=== PATIENT | female | born 1980 | race Two or more races ===

== ENCOUNTER → 2016-09-16 | Outpatient (CLI) | payer BC ==
[2016-09-16 09:43] LABS: Basophils # (auto) 0.1 uL; Eosinophils # (auto) 0.3 uL; Eosinophils % (auto) 6.7 % (0.0-7.0); Hematocrit 39.6 % (36.0-46.0); Hemoglobin 12.8 g/dL (12.2-16.2); Lymphocytes # (auto) 1.5 uL; Lymphocytes % (auto) 30.9 % (10.0-50.0); Mean Corpuscular Hemoglobin 28.9 pg (28.0-32.0); Mean Corpuscular Hgb Conc. 32.4 g/dL (32.0-36.0); Mean Corpuscular Volume 89.1 fL (80.0-100.0); Mean Platelet Volume 7.8 fL (7.4-10.4); Monocytes # (auto) 0.3 uL; Monocytes % (auto) 6.8 % (0.0-12.0); Neutrophils # (auto) 2.7 uL; Neutrophils % (auto) 54.6 % (37.0-80.0); Platelet Count (auto) 426 10^3/uL (140-450); Red Cell Distribution Width 13.8 % (11.6-16.0); White Blood Cell 4.9 10^3/uL (4.4-10.8)
[2016-09-16 09:46] LABS: Albumin 3.8 g/dL (3.4-5.0); BUN/Creatinine Ratio 23.4; Bilirubin, Total 0.5 mg/dL (0.2-1.0); Calcium 8.6 mg/dL (8.5-10.1); Potassium 4.1 mmol/L (3.5-5.1); Total Protein 7.6 g/dL (6.4-8.2)
== END | disposition home or self-care (01) ==
LOC: LAB 07:29
DX: M06.9 Rheumatoid arthritis, unspecified (principal); M25.50 Pain in unspecified joint; D64.9 Anemia, unspecified; Z79.899 Other long term (current) drug therapy
CPT/HCPCS: 36415; 80053; 85025; 85652; 86141

== ENCOUNTER → 2016-11-08 | Outpatient (CLI) | payer BC ==
[2016-11-08 09:24] LABS: Basophils # (auto) 0.1 uL; Basophils % (auto) 0.9 % (0.0-2.0); Eosinophils # (auto) 0.3 uL; Eosinophils % (auto) 4.6 % (0.0-7.0); Hematocrit 41.6 % (36.0-46.0); Hemoglobin 14.1 g/dL (12.2-16.2); Lymphocytes # (auto) 1.7 uL; Lymphocytes % (auto) 27.7 % (10.0-50.0); Mean Corpuscular Hemoglobin 29.6 pg (28.0-32.0); Mean Corpuscular Hgb Conc. 33.8 g/dL (32.0-36.0); Mean Corpuscular Volume 87.5 fL (80.0-100.0); Mean Platelet Volume 7.6 fL (7.4-10.4); Monocytes # (auto) 0.4 uL; Monocytes % (auto) 6.9 % (0.0-12.0); Neutrophils # (auto) 3.7 uL; Neutrophils % (auto) 59.9 % (37.0-80.0); Platelet Count (auto) 453 10^3/uL (140-450); Red Cell Distribution Width 14.2 % (11.6-16.0); White Blood Cell 6.2 10^3/uL (4.4-10.8)
[2016-11-08 09:31] LABS: Urine Bilirubin Negative (Negative); Urine Blood TRACE /uL (Negative); Urine Color Yellow (Yellow); Urine Glucose Normal (Normal); Urine Ketone Negative (Negative); Urine Mucus FEW (None Seen); Urine Nitrite Negative (Negative); Urine RBC <1 /hpf (0 - 4); Urine Squamous Epithelial Cell FEW /hpf (<5); Urine Urobilinogen Normal (Negative); Urine pH 5.5 (5.0-8.0)
[2016-11-08 09:52] LABS: BUN/Creatinine Ratio 21.7; Bilirubin, Total 0.6 mg/dL (0.2-1.0); Calcium 8.7 mg/dL (8.5-10.1); Potassium 3.8 mmol/L (3.5-5.1); Total Protein 8.1 g/dL (6.4-8.2)
== END | disposition home or self-care (01) ==
LOC: LAB 07:15
DX: M06.9 Rheumatoid arthritis, unspecified (principal); E50.7 Other ocular manifestations of vitamin A deficiency; Z83.3 Family history of diabetes mellitus
CPT/HCPCS: 36415; 80053; 80061; 81001; 82306; 82607; 82746; 83036; 84443; 85025; 85652

== ENCOUNTER → 2016-12-28 | Outpatient (CLI) | payer BC ==
[2016-12-28 07:43] LABS: Basophils # (auto) 0.1 uL; Basophils % (auto) 1.1 % (0.0-2.0); Eosinophils # (auto) 0.3 uL; Eosinophils % (auto) 4.3 % (0.0-7.0); Hematocrit 40.4 % (36.0-46.0); Hemoglobin 13.7 g/dL (12.2-16.2); Lymphocytes # (auto) 1.7 uL; Lymphocytes % (auto) 28.6 % (10.0-50.0); Mean Corpuscular Hemoglobin 30.1 pg (28.0-32.0); Mean Corpuscular Hgb Conc. 33.9 g/dL (32.0-36.0); Mean Corpuscular Volume 88.9 fL (80.0-100.0); Mean Platelet Volume 7.1 fL (7.4-10.4); Monocytes # (auto) 0.4 uL; Monocytes % (auto) 6.6 % (0.0-12.0); Neutrophils # (auto) 3.5 uL; Neutrophils % (auto) 59.4 % (37.0-80.0); Platelet Count (auto) 439 10^3/uL (140-450); Red Cell Distribution Width 14.1 % (11.6-16.0); White Blood Cell 5.9 10^3/uL (4.4-10.8)
[2016-12-28 08:06] LABS: Albumin 3.9 g/dL (3.4-5.0); Bilirubin, Total 0.6 mg/dL (0.2-1.0); Calcium 8.6 mg/dL (8.5-10.1); Potassium 4.2 mmol/L (3.5-5.1); Total Protein 7.9 g/dL (6.4-8.2)
== END | disposition home or self-care (01) ==
LOC: LAB 07:20
DX: M06.9 Rheumatoid arthritis, unspecified (principal); M25.50 Pain in unspecified joint; D64.9 Anemia, unspecified; I10 Essential (primary) hypertension
CPT/HCPCS: 36415; 80053; 85025; 85652; 86141

== ENCOUNTER → 2017-03-15 | Outpatient (CLI) | payer BC ==
[2017-03-15 07:30] LABS: Basophils # (auto) 0.1 uL; Basophils % (auto) 1.4 % (0.0-2.0); CONDITION Y; Eosinophils # (auto) 0.4 uL; Eosinophils % (auto) 5.7 % (0.0-7.0); Hematocrit 40.5 % (36.0-46.0); Hemoglobin 13.9 g/dL (12.2-16.2); Lymphocytes % (auto) 32.1 % (10.0-50.0); Mean Corpuscular Hemoglobin 30.5 pg (28.0-32.0); Mean Corpuscular Hgb Conc. 34.2 g/dL (32.0-36.0); Mean Corpuscular Volume 89.2 fL (80.0-100.0); Mean Platelet Volume 7.2 fL (7.4-10.4); Monocytes # (auto) 0.4 uL; Monocytes % (auto) 6.5 % (0.0-12.0); Neutrophils # (auto) 3.4 uL; Neutrophils % (auto) 54.3 % (37.0-80.0); Platelet Count (auto) 421 10^3/uL (140-450); Red Cell Distribution Width 14.6 % (11.6-16.0); White Blood Cell 6.2 10^3/uL (4.4-10.8)
[2017-03-15 07:47] LABS: Albumin 3.9 g/dL (3.4-5.0); BUN/Creatinine Ratio 25.8; Bilirubin, Total 0.7 mg/dL (0.2-1.0); Calcium 8.9 mg/dL (8.5-10.1); Potassium 4.1 mmol/L (3.5-5.1); Total Protein 7.7 g/dL (6.4-8.2)
== END ==
LOC: LAB 07:05
DX: I10 Essential (primary) hypertension (principal); M06.9 Rheumatoid arthritis, unspecified; D64.9 Anemia, unspecified; M25.50 Pain in unspecified joint; Z79.899 Other long term (current) drug therapy
CPT/HCPCS: 36415; 80053; 85025; 85652; 86141

== ENCOUNTER → 2017-06-16 | Outpatient (CLI) | payer BC ==
[2017-06-16 09:02] LABS: Basophils # (auto) 0.1 uL; Basophils % (auto) 1.2 % (0.0-2.0); Eosinophils # (auto) 0.3 uL; Eosinophils % (auto) 4.9 % (0.0-7.0); Hemoglobin 13.5 g/dL (12.2-16.2); Lymphocytes # (auto) 1.9 uL; Lymphocytes % (auto) 34.9 % (10.0-50.0); Mean Corpuscular Hemoglobin 29.6 pg (28.0-32.0); Mean Corpuscular Hgb Conc. 33.7 g/dL (32.0-36.0); Monocytes # (auto) 0.4 uL; Monocytes % (auto) 7.3 % (0.0-12.0); Neutrophils # (auto) 2.8 uL; Neutrophils % (auto) 51.7 % (37.0-80.0); Platelet Count (auto) 436 10^3/uL (140-450); Red Blood Cells 4.54 10^6/uL (4.0-5.20); Red Cell Distribution Width 15.1 % (11.8-14.3); White Blood Cell 5.4 10^3/uL (4.4-10.8)
[2017-06-16 09:41] LABS: Albumin 4.1 g/dL (3.4-5.0); BUN/Creatinine Ratio 25.9; Bilirubin, Total 0.5 mg/dL (0.2-1.0); CRP High Sensitivity 0.2 mg/dL (< 0.3); Calcium 8.9 mg/dL (8.5-10.1); Potassium 3.9 mmol/L (3.5-5.1)
== END | disposition home or self-care (01) ==
LOC: LAB 08:09
DX: D64.9 Anemia, unspecified (principal); M06.9 Rheumatoid arthritis, unspecified; M25.50 Pain in unspecified joint; I10 Essential (primary) hypertension; Z79.899 Other long term (current) drug therapy
CPT/HCPCS: 36415; 80053; 85025; 85652; 86141

== ENCOUNTER → 2018-05-22 | Outpatient (CLI) | payer BC ==
[2018-05-22 09:49] LABS: Basophils # (auto) 0.1 uL; Basophils % (auto) 1.3 % (0.0-2.0); Eosinophils # (auto) 0.2 uL; Lymphocytes # (auto) 1.7 uL; Monocytes % (auto) 6.3 % (0.0-12.0); Neutrophils # (auto) 3.1 uL; White Blood Cell 5.5 10^3/uL (4.4-10.8)
[2018-05-22 09:51] LABS: Eosinophils % (auto) 4.2 % (0.0-7.0); Hemoglobin 15.3 g/dL (12.2-16.2); Lymphocytes % (auto) 31.4 % (10.0-50.0); Mean Corpuscular Hemoglobin 30.2 pg (28.0-32.0); Mean Corpuscular Volume 88.8 fL (80.0-100.0); Monocytes # (auto) 0.3 uL; Neutrophils % (auto) 56.8 % (37.0-80.0); Nucleated Red Blood Cells % 0.1 %; Platelet Count (auto) 464 10^3/uL (140-450); Red Blood Cells 5.07 10^6/uL (4.0-5.20); Red Cell Distribution Width 15.3 % (11.8-14.3)
[2018-05-22 14:30] LABS: Hepatitis A Ab IgM Negative; Hepatitis B Core IgM Negative
[2018-05-22 14:31] LABS: Hepatitis B Surface Antigen Negative (Negative); Hepatitis C Antibody Negative (Negative)
[2018-05-22 14:44] LABS: Albumin 4.5 g/dL (3.4-5.0); BUN/Creatinine Ratio 20.3; Bilirubin, Total 0.6 mg/dL (0.2-1.0); Calcium 9.6 mg/dL (8.5-10.1); Potassium 4.1 mmol/L (3.5-5.1); Total Protein 9.3 g/dL (6.4-8.2)
== END | disposition home or self-care (01) ==
LOC: LAB 08:20
PROVIDERS: ATTEND Internal Medicine
DX: M06.9 Rheumatoid arthritis, unspecified (principal)
CPT/HCPCS: 36415; 80053; 80074; 82306; 84443; 85025; 85652; 86038; 86200; 86235; 86431

== ENCOUNTER → 2019-03-06 | Outpatient (CLI) | payer BC ==
[2019-03-06 08:30] LABS: Basophils # (auto) 0.1 uL; Basophils % (auto) 1.2 % (0.0-2.0); Eosinophils # (auto) 0.3 uL; Eosinophils % (auto) 5.5 % (0.0-7.0); Hematocrit 43.7 % (36.0-46.0); Hemoglobin 14.6 g/dL (12.2-16.2); Lymphocytes # (auto) 1.9 uL; Lymphocytes % (auto) 31.3 % (10.0-50.0); Mean Corpuscular Hemoglobin 29.1 pg (28.0-32.0); Mean Corpuscular Hgb Conc. 33.3 g/dL (32.0-36.0); Mean Corpuscular Volume 87.5 fL (80.0-100.0); Monocytes # (auto) 0.5 uL; Monocytes % (auto) 7.4 % (0.0-12.0); Neutrophils # (auto) 3.4 uL; Neutrophils % (auto) 54.6 % (37.0-80.0); Platelet Count (auto) 414 10^3/uL (140-450); Red Blood Cells 4.99 10^6/uL (4.0-5.20); Red Cell Distribution Width 15.2 % (11.8-14.3); White Blood Cell 6.1 10^3/uL (4.4-10.8)
[2019-03-06 09:26] LABS: BUN/Creatinine Ratio 19.7; Bilirubin, Total 0.4 mg/dL (0.2-1.0); CRP High Sensitivity 0.36 mg/dL (< 0.3); Calcium 8.8 mg/dL (8.5-10.1); Total Protein 8.6 g/dL (6.4-8.2)
== END | disposition home or self-care (01) ==
LOC: LAB 08:00
PROVIDERS: ATTEND Internal Medicine Rheumatology
DX: M05.79 Rheumatoid arthritis with rheumatoid factor of multiple sites without organ or systems involvement (principal); M32.10 Systemic lupus erythematosus, organ or system involvement unspecified
CPT/HCPCS: 36415; 80053; 85025; 85652; 86141; 86160; 86225

== ENCOUNTER → 2019-08-14 | Outpatient (CLI) | payer BC ==
[2019-08-14 08:51] LABS: Eosinophils # (auto) 0.3 uL; Eosinophils % (auto) 4.9 % (0.0-7.0); Lymphocytes # (auto) 1.9 uL; Mean Corpuscular Hgb Conc. 34.1 g/dL (32.0-36.0); Mean Corpuscular Volume 86.4 fL (80.0-100.0); Monocytes # (auto) 0.4 uL; Neutrophils # (auto) 4.1 uL; White Blood Cell 6.8 10^3/uL (4.4-10.8)
[2019-08-14 08:53] LABS: Basophils # (auto) 0 uL; Basophils % (auto) 0.6 % (0.0-2.0); Hematocrit 40.6 % (36.0-46.0); Hemoglobin 13.9 g/dL (12.2-16.2); Lymphocytes % (auto) 28.3 % (10.0-50.0); Mean Corpuscular Hemoglobin 29.5 pg (28.0-32.0); Monocytes % (auto) 6.5 % (0.0-12.0); Neutrophils % (auto) 59.7 % (37.0-80.0); Red Cell Distribution Width 14.4 % (11.8-14.3)
[2019-08-14 09:19] LABS: Platelet Count (auto) 520 10^3/uL (140-450)
[2019-08-14 09:29] LABS: Potassium 4.1 mmol/L (3.5-5.1)
[2019-08-14 09:37] LABS: Albumin 4.1 g/dL (3.4-5.0); BUN/Creatinine Ratio 19.7; Bilirubin, Total 0.3 mg/dL (0.2-1.0); Calcium 9.4 mg/dL (8.5-10.1); Total Protein 8.8 g/dL (6.4-8.2)
== END | disposition home or self-care (01) ==
LOC: LAB 08:28
PROVIDERS: ATTEND Internal Medicine Rheumatology
DX: M05.79 Rheumatoid arthritis with rheumatoid factor of multiple sites without organ or systems involvement (principal); M32.10 Systemic lupus erythematosus, organ or system involvement unspecified
CPT/HCPCS: 36415; 80053; 85025; 85652; 86225

== ENCOUNTER → 2020-06-07 | Outpatient (CLI) | payer BC ==
[2020-06-07 10:12] LABS: Basophils # (auto) 0.1 10 ^3/uL (0-0.2); Basophils % (auto) 1.7 % (0.0-2.0); Eosinophils # (auto) 0.3 10 ^3/uL (0-0.8); Eosinophils % (auto) 5.6 % (0.0-7.0); Hematocrit 40.1 % (36.0-46.0); Hemoglobin 13.5 g/dL (12.2-16.2); Lymphocytes # (auto) 1.8 10 ^3/uL (0.4-5.4); Mean Corpuscular Hgb Conc. 33.7 g/dL (32.0-36.0); Monocytes # (auto) 0.4 10 ^3/uL (0-1.3); Neutrophils # (auto) 2.9 10 ^3/uL (1.6-8.6); Nucleated Red Blood Cells % 0.1 %
[2020-06-07 10:14] LABS: Lymphocytes % (auto) 32.5 % (10.0-50.0); Mean Corpuscular Hemoglobin 28.9 pg (28.0-32.0); Mean Corpuscular Volume 85.9 fL (80.0-100.0); Monocytes % (auto) 6.5 % (0.0-12.0); Neutrophils % (auto) 53.7 % (37.0-80.0); Platelet Count (auto) 495 10^3/uL (140-450); Red Blood Cells 4.67 10^6/uL (4.0-5.20); Red Cell Distribution Width 15.3 % (11.8-14.3); White Blood Cell 5.5 10^3/uL (4.4-10.8)
[2020-06-07 10:30] LABS: Albumin 4.2 g/dL (3.4-5.0); Calcium 8.8 mg/dL (8.5-10.1); Potassium 4.1 mmol/L (3.5-5.1)
[2020-06-07 10:34] LABS: BUN/Creatinine Ratio 19.4; Bilirubin, Total 0.4 mg/dL (0.2-1.0); CRP High Sensitivity 0.33 mg/dL (< 0.3); Total Protein 8.2 g/dL (6.4-8.2)
== END | disposition home or self-care (01) ==
LOC: LAB 09:03
PROVIDERS: ATTEND Internal Medicine Rheumatology
DX: M05.79 Rheumatoid arthritis with rheumatoid factor of multiple sites without organ or systems involvement (principal); M32.10 Systemic lupus erythematosus, organ or system involvement unspecified
CPT/HCPCS: 36415; 80053; 85025; 85652; 86141; 86225

== ENCOUNTER → 2020-10-07 | Outpatient (CLI) | payer BC ==
[2020-10-07 07:37] LABS: Basophils # (auto) 0.1 10 ^3/uL (0-0.2); Eosinophils # (auto) 0.4 10 ^3/uL (0-0.8); Hemoglobin 13.1 g/dL (12.2-16.2); Lymphocytes # (auto) 1.7 10 ^3/uL (0.4-5.4); Monocytes # (auto) 0.4 10 ^3/uL (0-1.3); Neutrophils # (auto) 2.6 10 ^3/uL (1.6-8.6); Nucleated Red Blood Cells % 0.1 %; White Blood Cell 5.1 10^3/uL (4.4-10.8)
[2020-10-07 07:39] LABS: Basophils % (auto) 1.4 % (0.0-2.0); Eosinophils % (auto) 7.4 % (0.0-7.0); Hematocrit 38.8 % (36.0-46.0); Lymphocytes % (auto) 33.2 % (10.0-50.0); Mean Corpuscular Hemoglobin 28.3 pg (28.0-32.0); Mean Corpuscular Hgb Conc. 33.7 g/dL (32.0-36.0); Mean Corpuscular Volume 84.1 fL (80.0-100.0); Monocytes % (auto) 7.1 % (0.0-12.0); Neutrophils % (auto) 50.9 % (37.0-80.0); Platelet Count (auto) 458 10^3/uL (140-450); Red Blood Cells 4.62 10^6/uL (4.0-5.20); Red Cell Distribution Width 15.4 % (11.8-14.3)
[2020-10-07 07:51] LABS: Albumin 3.7 g/dL (3.4-5.0); Calcium 8.5 mg/dL (8.5-10.1); Potassium 4.1 mmol/L (3.5-5.1)
[2020-10-07 07:55] LABS: BUN/Creatinine Ratio 19.4; Bilirubin, Total 0.4 mg/dL (0.2-1.0); CRP High Sensitivity 0.41 mg/dL (< 0.3); Total Protein 7.8 g/dL (6.4-8.2)
== END | disposition home or self-care (01) ==
LOC: LAB 07:10
PROVIDERS: ATTEND Internal Medicine Rheumatology
DX: M05.79 Rheumatoid arthritis with rheumatoid factor of multiple sites without organ or systems involvement (principal)
CPT/HCPCS: 36415; 80053; 85025; 85652; 86141; 86225

== ENCOUNTER → 2021-09-02 | Outpatient (CLI) | payer BC ==
[2021-09-02 10:33] LABS: Eosinophils # (auto) 0.3 10 ^3/uL (0-0.8); Lymphocytes # (auto) 1.5 10 ^3/uL (0.4-5.4); Lymphocytes % (auto) 25.3 % (10.0-50.0); Neutrophils # (auto) 3.7 10 ^3/uL (1.6-8.6); Nucleated Red Blood Cells % 0.1 %; White Blood Cell 6.1 10^3/uL (4.4-10.8)
[2021-09-02 10:35] LABS: Basophils # (auto) 0 10 ^3/uL (0-0.2); Basophils % (auto) 0.8 % (0.0-2.0); Eosinophils % (auto) 5.5 % (0.0-7.0); Hematocrit 36.7 % (36.0-46.0); Hemoglobin 12.9 g/dL (12.2-16.2); Mean Corpuscular Hemoglobin 29.8 pg (28.0-32.0); Mean Corpuscular Hgb Conc. 35.1 g/dL (32.0-36.0); Monocytes # (auto) 0.5 10 ^3/uL (0-1.3); Monocytes % (auto) 8.2 % (0.0-12.0); Neutrophils % (auto) 60.2 % (37.0-80.0); Red Blood Cells 4.32 10^6/uL (4.0-5.20); Red Cell Distribution Width 14.9 % (11.8-14.3)
[2021-09-02 11:29] LABS: Albumin 3.8 g/dL (3.4-5.0); Calcium 8.9 mg/dL (8.5-10.1); Potassium 4.2 mmol/L (3.5-5.1)
[2021-09-02 11:37] LABS: Bilirubin, Total 0.4 mg/dL (0.2-1.0); CRP High Sensitivity 2.58 mg/dL (< 0.3); Total Protein 8.1 g/dL (6.4-8.2)
== END | disposition home or self-care (01) ==
LOC: LAB 09:33
PROVIDERS: ATTEND Internal Medicine Rheumatology
DX: M05.79 Rheumatoid arthritis with rheumatoid factor of multiple sites without organ or systems involvement (principal)
CPT/HCPCS: 36415; 80053; 85025; 85652; 86141; 86225

== ENCOUNTER → 2022-01-13 | Outpatient (CLI) | payer BC ==
[2022-01-13 07:45] LABS: Eosinophils # (auto) 0.3 10 ^3/uL (0-0.8); Monocytes # (auto) 0.4 10 ^3/uL (0-1.3)
[2022-01-13 07:47] LABS: Basophils # (auto) 0.2 10 ^3/uL (0-0.2); Eosinophils % (auto) 5.3 % (0.0-7.0); Hematocrit 40.3 % (36.0-46.0); Hemoglobin 13.8 g/dL (12.2-16.2); Lymphocytes # (auto) 1.7 10 ^3/uL (0.4-5.4); Lymphocytes % (auto) 32.2 % (10.0-50.0); Mean Corpuscular Hemoglobin 29.6 pg (28.0-32.0); Mean Corpuscular Hgb Conc. 34.3 g/dL (32.0-36.0); Mean Corpuscular Volume 86.3 fL (80.0-100.0); Monocytes % (auto) 7.3 % (0.0-12.0); Neutrophils # (auto) 2.8 10 ^3/uL (1.6-8.6); Neutrophils % (auto) 52.2 % (37.0-80.0); Nucleated Red Blood Cells % 0.1 %; Red Blood Cells 4.67 10^6/uL (4.0-5.20); White Blood Cell 5.4 10^3/uL (4.4-10.8)
[2022-01-13 07:53] LABS: Albumin 3.7 g/dL (3.4-5.0); Calcium 8.7 mg/dL (8.5-10.1)
[2022-01-13 07:57] LABS: BUN/Creatinine Ratio 22.1; Bilirubin, Total 0.4 mg/dL (0.2-1.0); CRP High Sensitivity 0.12 mg/dL (< 0.3); Total Protein 7.4 g/dL (6.4-8.2)
== END | disposition home or self-care (01) ==
LOC: LAB 07:15
PROVIDERS: ATTEND Internal Medicine Rheumatology
DX: Z11.1 Encounter for screening for respiratory tuberculosis (principal); M05.79 Rheumatoid arthritis with rheumatoid factor of multiple sites without organ or systems involvement
CPT/HCPCS: 36415; 80053; 80061; 85025; 85652; 86141

== ENCOUNTER → 2022-05-06 | Outpatient (CLI) | payer BC ==
[2022-05-06 08:36] LABS: Basophils # (auto) 0.1 10 ^3/uL (0-0.2); Basophils % (auto) 1.5 % (0.0-2.0); Eosinophils # (auto) 0.3 10 ^3/uL (0-0.8); Eosinophils % (auto) 5.2 % (0.0-7.0); Hematocrit 41.8 % (36.0-46.0); Lymphocytes # (auto) 1.9 10 ^3/uL (0.4-5.4); Lymphocytes % (auto) 36.6 % (10.0-50.0); Mean Corpuscular Hemoglobin 29.6 pg (28.0-32.0); Mean Corpuscular Hgb Conc. 33.5 g/dL (32.0-36.0); Mean Corpuscular Volume 88.4 fL (80.0-100.0); Monocytes # (auto) 0.5 10 ^3/uL (0-1.3); Monocytes % (auto) 9.1 % (0.0-12.0); Neutrophils # (auto) 2.5 10 ^3/uL (1.6-8.6); Neutrophils % (auto) 47.6 % (37.0-80.0); Red Blood Cells 4.73 10^6/uL (4.0-5.20); Red Cell Distribution Width 14.7 % (11.8-14.3); White Blood Cell 5.2 10^3/uL (4.4-10.8)
[2022-05-06 09:28] LABS: Potassium 4.3 mmol/L (3.5-5.1)
[2022-05-06 09:33] LABS: Albumin 3.8 g/dL (3.4-5.0); BUN/Creatinine Ratio 21.5; Bilirubin, Total 0.6 mg/dL (0.2-1.0); CRP High Sensitivity 0.1 mg/dL (< 0.3); Total Protein 7.6 g/dL (6.4-8.2)
== END | disposition home or self-care (01) ==
LOC: LAB 08:22
PROVIDERS: ATTEND Internal Medicine Rheumatology
DX: M05.79 Rheumatoid arthritis with rheumatoid factor of multiple sites without organ or systems involvement (principal)
CPT/HCPCS: 36415; 80053; 85025; 85652; 86141

== ENCOUNTER → 2022-11-03 | Outpatient (CLI) | payer BC ==
[2022-11-03 07:11] LABS: Basophils # (auto) 0.1 10 ^3/uL (0-0.2); Basophils % (auto) 0.9 % (0.0-2.0); Eosinophils # (auto) 0.2 10 ^3/uL (0-0.8); Eosinophils % (auto) 3.6 % (0.0-7.0); Hematocrit 41.8 % (36.0-46.0); Hemoglobin 14.3 g/dL (12.2-16.2); Lymphocytes # (auto) 1.6 10 ^3/uL (0.4-5.4); Lymphocytes % (auto) 24.7 % (10.0-50.0); Mean Corpuscular Hgb Conc. 34.1 g/dL (32.0-36.0); Monocytes # (auto) 0.7 10 ^3/uL (0-1.3); Monocytes % (auto) 10.5 % (0.0-12.0); Neutrophils # (auto) 3.9 10 ^3/uL (1.6-8.6); Neutrophils % (auto) 60.3 % (37.0-80.0); Red Blood Cells 4.92 10^6/uL (4.0-5.20); Red Cell Distribution Width 16.6 % (11.8-14.3); White Blood Cell 6.5 10^3/uL (4.4-10.8)
[2022-11-03 07:35] LABS: Albumin 3.8 g/dL (3.4-5.0); Calcium 8.4 mg/dL (8.5-10.1)
[2022-11-03 07:39] LABS: Bilirubin, Total 0.5 mg/dL (0.2-1.0); Total Protein 7.8 g/dL (6.4-8.2)
[2022-11-03 07:46] LABS: CRP High Sensitivity 0.05 mg/dL (< 0.3)
[2022-11-03 07:56] LABS: BUN/Creatinine Ratio 25.8 (10.0-20.0)
== END | disposition home or self-care (01) ==
LOC: LAB 06:56
PROVIDERS: ATTEND Internal Medicine Rheumatology
DX: M05.79 Rheumatoid arthritis with rheumatoid factor of multiple sites without organ or systems involvement (principal); Z79.899 Other long term (current) drug therapy
CPT/HCPCS: 36415; 80053; 85025; 85652; 86141

== ENCOUNTER → 2023-03-31 | Outpatient (CLI) | payer BC ==
[2023-03-31 08:28] LABS: Basophils # (auto) 0.1 10 ^3/uL (0-0.2); Basophils % (auto) 1.4 % (0.0-2.0); Eosinophils # (auto) 0.3 10 ^3/uL (0-0.8); Eosinophils % (auto) 4.4 % (0.0-7.0); Hematocrit 42.3 % (36.0-46.0); Hemoglobin 14.3 g/dL (12.2-16.2); Lymphocytes # (auto) 1.7 10 ^3/uL (0.4-5.4); Lymphocytes % (auto) 25.8 % (10.0-50.0); Mean Corpuscular Hgb Conc. 33.9 g/dL (32.0-36.0); Mean Corpuscular Volume 88.6 fL (80.0-100.0); Monocytes # (auto) 0.6 10 ^3/uL (0-1.3); Monocytes % (auto) 9.7 % (0.0-12.0); Neutrophils # (auto) 3.8 10 ^3/uL (1.6-8.6); Neutrophils % (auto) 58.7 % (37.0-80.0); Nucleated Red Blood Cells % 0.1 %; Red Blood Cells 4.77 10^6/uL (4.0-5.20); Red Cell Distribution Width 14.3 % (11.8-14.3); White Blood Cell 6.4 10^3/uL (4.4-10.8)
[2023-03-31 08:47] LABS: Alanine Aminotransferase 52 U/L (7-40); Albumin 4.3 g/dL (3.2-4.8); Aspartate Aminotransferase 26 U/L (13-40); CRP High Sensitivity 0.18 mg/dL (<1.0); Chloride 108 mmol/L (98-107); Potassium 4.6 mmol/L (3.5-5.1); Sodium 140 mmol/L (136-145)
[2023-03-31 08:48] LABS: Bilirubin, Total 0.7 mg/dL (0.2-1.0); Total Protein 7.4 g/dL (5.7-8.2)
[2023-03-31 08:49] LABS: Anion Gap 6.6 (5-15); Carbon Dioxide 25.4 mmol/L (20-30)
[2023-03-31 08:50] LABS: Calcium 9.2 mg/dL (8.5-10.1)
[2023-03-31 08:54] LABS: Glucose 88 mg/dL (74-106)
[2023-03-31 08:55] LABS: Alkaline Phosphatase 65 U/L (46-116); BUN/Creatinine Ratio 16.4 (10.0-20.0); Blood Urea Nitrogen 10 mg/dL (9-23)
[2023-03-31 09:14] LABS: Erythrocyte Sedimentation Rate 8 mm/hr (0-20)
== END | disposition home or self-care (01) ==
LOC: LAB 08:09
PROVIDERS: ATTEND Internal Medicine Rheumatology
DX: M05.79 Rheumatoid arthritis with rheumatoid factor of multiple sites without organ or systems involvement (principal); Z79.899 Other long term (current) drug therapy
CPT/HCPCS: 36415; 80053; 85025; 85652; 86141

== ENCOUNTER → 2023-06-15 | Outpatient (CLI) | payer BC ==
[2023-06-15 08:38] LABS: Basophils # (auto) 0.1 10 ^3/uL (0-0.2); Basophils % (auto) 1.6 % (0.0-2.0); Eosinophils # (auto) 0.4 10 ^3/uL (0-0.8); Eosinophils % (auto) 7.8 % (0.0-7.0); Hematocrit 39.9 % (36.0-46.0); Hemoglobin 13.6 g/dL (12.2-16.2); Lymphocytes # (auto) 1.6 10 ^3/uL (0.4-5.4); Mean Corpuscular Hemoglobin 30.5 pg (28.0-32.0); Mean Corpuscular Hgb Conc. 34.2 g/dL (32.0-36.0); Mean Corpuscular Volume 89.1 fL (80.0-100.0); Monocytes # (auto) 0.5 10 ^3/uL (0-1.3); Monocytes % (auto) 10.7 % (0.0-12.0); Neutrophils # (auto) 2.3 10 ^3/uL (1.6-8.6); Neutrophils % (auto) 47.9 % (37.0-80.0); Nucleated Red Blood Cells % 0.2 %; Red Blood Cells 4.47 10^6/uL (4.0-5.20); Red Cell Distribution Width 14.8 % (11.8-14.3); White Blood Cell 4.9 10^3/uL (4.4-10.8)
[2023-06-15 09:28] LABS: Erythrocyte Sedimentation Rate 9 mm/hr (0-20)
[2023-06-15 09:36] LABS: Alanine Aminotransferase 56 U/L (7-40); Albumin 4.1 g/dL (3.2-4.8); Alkaline Phosphatase 63 U/L (46-116); Anion Gap 7 (5-15); Aspartate Aminotransferase 36 U/L (13-40); Bilirubin, Total 0.4 mg/dL (0.2-1.0); CRP High Sensitivity 0.12 mg/dL (<1.0); Calcium 9.1 mg/dL (8.5-10.1); Carbon Dioxide 26 mmol/L (20-30); Chloride 106 mmol/L (98-107); Glucose 86 mg/dL (74-106); Potassium 4.2 mmol/L (3.5-5.1); Sodium 139 mmol/L (136-145)
[2023-06-15 09:39] LABS: BUN/Creatinine Ratio 7.8 (10.0-20.0); Blood Urea Nitrogen < 5 mg/dL (9-23)
== END | disposition home or self-care (01) ==
LOC: LAB 08:19
PROVIDERS: ATTEND Internal Medicine Rheumatology
DX: M05.79 Rheumatoid arthritis with rheumatoid factor of multiple sites without organ or systems involvement (principal); Z79.899 Other long term (current) drug therapy
CPT/HCPCS: 36415; 80053; 85025; 85652; 86141

== ENCOUNTER → 2023-11-28 | Outpatient (CLI) | payer BC ==
[2023-11-28 08:57] LABS: Basophils # (auto) 0.1 10 ^3/uL (0-0.2); Eosinophils # (auto) 0.3 10 ^3/uL (0-0.8); Eosinophils % (auto) 3.5 % (0.0-7.0); Lymphocytes # (auto) 1.7 10 ^3/uL (0.4-5.4); Lymphocytes % (auto) 22.8 % (10.0-50.0); Mean Corpuscular Hemoglobin 28.5 pg (28.0-32.0); Mean Corpuscular Hgb Conc. 33.4 g/dL (32.0-36.0); Mean Corpuscular Volume 85.5 fL (80.0-100.0); Monocytes # (auto) 0.6 10 ^3/uL (0-1.3); Monocytes % (auto) 7.8 % (0.0-12.0); Neutrophils # (auto) 4.8 10 ^3/uL (1.6-8.6); Neutrophils % (auto) 64.9 % (37.0-80.0); Red Blood Cells 4.56 10^6/uL (4.0-5.20); Red Cell Distribution Width 15.9 % (11.8-14.3); White Blood Cell 7.4 10^3/uL (4.4-10.8)
[2023-11-28 09:19] LABS: Urine Bacteria MANY /hpf (None Seen); Urine Blood Negative /uL (Negative); Urine Clarity Turbid (Clear); Urine Color Light-Yellow (Yellow); Urine Mucus FEW (None Seen); Urine Protein, UAD Negative (Negative); Urine Specific Gravity 1.013 (1.001-1.035); Urine Urobilinogen Normal (Negative); Urine WBC 5 /hpf (0 - 5)
[2023-11-28 09:26] LABS: Alanine Aminotransferase 28 U/L (7-40); Alkaline Phosphatase 73 U/L (46-116); Anion Gap 8 (5-15); BUN/Creatinine Ratio 14.9 (10.0-20.0); Blood Urea Nitrogen 10 mg/dL (9-23); Calcium 9.8 mg/dL (8.5-10.1); Carbon Dioxide 23 mmol/L (20-30); Chloride 109 mmol/L (98-107); Glucose 97 mg/dL (74-106); Potassium 4.5 mmol/L (3.5-5.1); Sodium 140 mmol/L (136-145)
[2023-11-28 09:27] LABS: Albumin 4.4 g/dL (3.2-4.8); Aspartate Aminotransferase 26 U/L (13-40); Bilirubin, Total 0.6 mg/dL (0.2-1.0); Total Protein 7.7 g/dL (5.7-8.2)
[2023-11-28 09:32] LABS: Erythrocyte Sedimentation Rate 21 mm/hr (0-20)
[2023-11-28 09:35] LABS: CRP High Sensitivity 2.26 mg/dL (<1.0)
[2023-11-28 10:11] LABS: Protein, Urine 13.7 mg/dL (0.0-11.9)
[2023-11-28 10:13] LABS: Creatinine, Urine 88.43 mg/dL (30.0-125.0); Urine Protein/Creatinine Ratio 0.15
== END | disposition home or self-care (01) ==
LOC: LAB 08:30
PROVIDERS: ATTEND Internal Medicine Rheumatology
DX: M05.9 Rheumatoid arthritis with rheumatoid factor, unspecified (principal); Z79.899 Other long term (current) drug therapy
CPT/HCPCS: 36415; 80053; 81001; 82570; 84156; 85025; 85652; 86141

== ENCOUNTER → 2024-10-31 | Outpatient (CLI) | payer BC ==
[2024-10-31 08:23] LABS: Eosinophils # (auto) 0.2 10 ^3/uL (0-0.8); Monocytes # (auto) 0.3 10 ^3/uL (0-1.3); Neutrophils # (auto) 2.1 10 ^3/uL (1.6-8.6); Nucleated Red Blood Cells % 0.1 %
[2024-10-31 08:25] LABS: Basophils # (auto) 0 10 ^3/uL (0-0.2); Basophils % (auto) 0.9 % (0.0-2.0); Eosinophils % (auto) 3.7 % (0.0-7.0); Hemoglobin 12.8 g/dL (12.2-16.2); Lymphocytes % (auto) 43.1 % (10.0-50.0); Mean Corpuscular Hemoglobin 27.8 pg (28.0-32.0); Mean Corpuscular Hgb Conc. 32.8 g/dL (32.0-36.0); Mean Corpuscular Volume 84.8 fL (80.0-100.0); Monocytes % (auto) 7.2 % (0.0-12.0); Neutrophils % (auto) 45.1 % (37.0-80.0); Platelet Count (auto) 479 10^3/uL (140-450); Red Cell Distribution Width 15.6 % (11.8-14.3); White Blood Cell 4.7 10^3/uL (4.4-10.8)
[2024-10-31 08:50] LABS: Alanine Aminotransferase 25 U/L (7-40); Albumin 4.4 g/dL (3.2-4.8); Alkaline Phosphatase 81 U/L (46-116); Anion Gap 8 (5-15); Aspartate Aminotransferase 16 U/L (13-40); BUN/Creatinine Ratio 17.9 (10.0-20.0); Bilirubin, Total 0.4 mg/dL (0.2-1.0); Blood Urea Nitrogen 12 mg/dL (9-23); CRP High Sensitivity 0.43 mg/dL (<1.0); Calcium 9.3 mg/dL (8.7-10.4); Carbon Dioxide 27 mmol/L (20-31); Chloride 105 mmol/L (98-107); Cholesterol 184 mg/dL (< 200); Glucose 99 mg/dL (74-106); HDL Cholesterol 42 mg/dL (40-59); Potassium 4.3 mmol/L (3.5-5.1); Sodium 140 mmol/L (136-145); Total Protein 7.4 g/dL (5.7-8.2); Triglycerides 95 mg/dL (< 150)
[2024-10-31 08:51] LABS: LDL Cholesterol 135 mg/dL (< 100)
[2024-10-31 09:26] LABS: Erythrocyte Sedimentation Rate 14 mm/hr (0-20)
== END | disposition home or self-care (01) ==
LOC: LAB 08:01
PROVIDERS: ATTEND Internal Medicine Rheumatology
DX: E78.5 Hyperlipidemia, unspecified (principal); M05.79 Rheumatoid arthritis with rheumatoid factor of multiple sites without organ or systems involvement; Z79.899 Other long term (current) drug therapy
CPT/HCPCS: 36415; 80053; 80061; 85025; 85652; 86141

== ENCOUNTER 2025-01-08 07:05 | Outpatient (CLI) | payer BC ==
[2025-01-08 07:42] LABS: Basophils # (auto) 0 10 ^3/uL (0-0.2); Basophils % (auto) 0.3 % (0.0-2.0); Eosinophils # (auto) 0.2 10 ^3/uL (0-0.8); Eosinophils % (auto) 3.4 % (0.0-7.0); Hematocrit 37.9 % (36.0-46.0); Hemoglobin 12.7 g/dL (12.2-16.2); Lymphocytes # (auto) 1.2 10 ^3/uL (0.4-5.4); Lymphocytes % (auto) 20.5 % (10.0-50.0); Mean Corpuscular Hemoglobin 27.8 pg (28.0-32.0); Mean Corpuscular Hgb Conc. 33.5 g/dL (32.0-36.0); Mean Corpuscular Volume 82.9 fL (80.0-100.0); Monocytes # (auto) 0.4 10 ^3/uL (0-1.3); Monocytes % (auto) 6.9 % (0.0-12.0); Neutrophils # (auto) 4.2 10 ^3/uL (1.6-8.6); Neutrophils % (auto) 68.9 % (37.0-80.0); Platelet Count (auto) 415 10^3/uL (140-450); Red Blood Cells 4.56 10^6/uL (4.0-5.20)
[2025-01-08 08:07] LABS: Urine Bacteria FEW /hpf (None Seen); Urine Blood 1+ /uL (Negative); Urine Clarity Clear (Clear); Urine Color Light-Yellow (Yellow); Urine Mucus FEW (None Seen); Urine Protein, UAD Negative (Negative); Urine Specific Gravity 1.016 (1.001-1.035); Urine Squamous Epithelial Cell FEW /hpf (<5); Urine Urobilinogen Normal (Negative); Urine WBC 6 /HPF (0-5)
[2025-01-08 08:34] LABS: Alanine Aminotransferase 16 U/L (7-40); Albumin 4.4 g/dL (3.2-4.8); Alkaline Phosphatase 82 U/L (46-116); Anion Gap 8 (5-15); Aspartate Aminotransferase 14 U/L (13-40); BUN/Creatinine Ratio 26.7 (10.0-20.0); Blood Urea Nitrogen 16 mg/dL (9-23); Calcium 9.5 mg/dL (8.7-10.4); Carbon Dioxide 24 mmol/L (20-31); Cholesterol 166 mg/dL (< 200); HDL Cholesterol 44 mg/dL (40-59); Potassium 4.1 mmol/L (3.5-5.1); Sodium 141 mmol/L (136-145); Total Protein 7.5 g/dL (5.7-8.2)
[2025-01-08 08:45] LABS: Bilirubin, Total 0.3 mg/dL (0.2-1.0); Chloride 109 mmol/L (98-107); LDL Cholesterol 111 mg/dL (< 100); Triglycerides 154 mg/dL (< 150)
[2025-01-08 08:52] LABS: Glucose 88 mg/dL (74-106)
== END 2025-01-08 17:00 | disposition home or self-care (01) ==
LOC: LAB 07:05
PROVIDERS: ATTEND Internal Medicine
DX: Z00.01 Encounter for general adult medical examination with abnormal findings (principal); R94.5 Abnormal results of liver function studies; Z83.3 Family history of diabetes mellitus
CPT/HCPCS: 36415; 80053; 80061; 81001; 83036; 84439; 84443; 85025

== ENCOUNTER 2025-04-03 07:29 | Outpatient (CLI) | payer BC ==
[2025-04-03 07:41] LABS: Hemoglobin 12.3 g/dL (12.2-16.2); Nucleated Red Blood Cells % 0.1 %
[2025-04-03 07:43] LABS: Hematocrit 36.4 % (36.0-46.0); Mean Corpuscular Hemoglobin 27.3 pg (28.0-32.0); Mean Corpuscular Volume 80.9 fL (80.0-100.0)
[2025-04-03 08:35] LABS: Alanine Aminotransferase 19 U/L (7-40); Albumin 4.3 g/dL (3.2-4.8); Alkaline Phosphatase 84 U/L (46-116); Anion Gap 8 (5-15); BUN/Creatinine Ratio 24.6 (10.0-20.0); Bilirubin, Total 0.3 mg/dL (0.2-1.0); Blood Urea Nitrogen 16 mg/dL (9-23); Calcium 9.2 mg/dL (8.7-10.4); Carbon Dioxide 26 mmol/L (20-31); Chloride 106 mmol/L (98-107); Cholesterol 181 mg/dL (< 200); Glucose 83 mg/dL (74-106); HDL Cholesterol 44 mg/dL (40-59); Potassium 4.1 mmol/L (3.5-5.1); Sodium 140 mmol/L (136-145); Total Protein 7.3 g/dL (5.7-8.2); Triglycerides 99 mg/dL (< 150)
== END 2025-04-03 17:00 | disposition home or self-care (01) ==
LOC: LAB 07:29
PROVIDERS: ATTEND Internal Medicine Rheumatology
DX: E78.5 Hyperlipidemia, unspecified (principal); M32.10 Systemic lupus erythematosus, organ or system involvement unspecified; M05.79 Rheumatoid arthritis with rheumatoid factor of multiple sites without organ or systems involvement
CPT/HCPCS: 36415; 80053; 80061; 85025; 85652; 86141